=== PATIENT | male | born 1960 | race Caucasian/White ===

== ENCOUNTER 2024-10-22 13:04 | Emergency (ER) | payer MEDICARE ==
[2024-10-22] MEDS ORDERED: Magnesium 2 GM/50 ML BAG (IN WATER) ONE (13:33)
[2024-10-22 13:36] LABS: #Basophils 0.2 thou/uL (0.0-0.2); #Eosinophils 0.2 thou/uL (0.0-0.7); #Lymphocytes 2.6 thou/uL (1.20-3.40); #Monocytes 0.8 thou/uL (0.11-0.59); #Neutrophils 6.0 thou/uL (1.40-6.50); %Basophils 2.0 % (0.0-1.0); %Eosinophils 1.7 % (0.0-10.0); %Lymphocytes 26.4 % (21.0-51.0); %Monocytes 8.4 % (0.0-10.0); %Neutrophils 61.5 % (42.0-75.0); Hematocrit 57.1 % (42.0-52.0); Hemoglobin 18.4 g/dL (14.0-18.0); Mean Corpuscular Hemoglobin 30.1 pg (27.0-31.0); Mean Corpuscular Volume 93.6 fl (78.0-98.0); Platelet Count 277 10x3/uL (130-400); Red Blood Cell (RBC) Count 6.10 mill/uL (4.70-6.10); White Blood Cell (WBC) Count 9.7 10x3/uL (4.8-10.8)
[2024-10-22 13:46] LABS: INR-International Normal Ratio 1.0; Prothrombin Time 13.0 sec (12.0-14.7)
[2024-10-22 13:47] LABS: PTT 29.7 sec (22.9-36.1)
[2024-10-22 13:49] LABS: D-Dimer Test 0.32 mcg/mL (0.27-0.43)
[2024-10-22 13:54] LABS: ALT (SGPT) 18 U/L (Less than 45); AST (SGOT) 22 U/L (11-34); Albumin 4.7 g/dL (3.1-4.5); Alkaline Phosphatase 77 U/L (40-110); Anion Gap 16 mmol/L (10-20); BUN (Urea Nitrogen) 16 mg/dL (8.4-25.7); Bilirubin, Total 0.7 mg/dL (0.3-1.2); Calc. Creatinine Clearance 0 mL/min (70-130); Calcium 9.9 mg/dL (7.8-10.44); Carbon Dioxide 22 mmol/L (23-31); Chloride 109 mmol/L (98-107); Globulin 2.7 g/dL (2.4-3.5); Glucose 86 mg/dL (80-115); Magnesium 2.1 mg/dL (1.6-2.6); Potassium 4.3 mmol/L (3.5-5.1); Sodium 143 mmol/L (136-145)
[2024-10-22 13:55] LABS: Troponin I 0.023 ng/mL (< 0.028)
[2024-10-22] MEDS ORDERED: dilTIAZem 25 MG/5 ML VIAL ONE (14:42)
== END 2024-10-22 18:00 | disposition home or self-care (01) ==
LOC: MADERS 13:04
DX: I48.92 Unspecified atrial flutter (principal); R00.0 Tachycardia, unspecified; I48.0 Paroxysmal atrial fibrillation; F17.210 Nicotine dependence, cigarettes, uncomplicated
CPT/HCPCS: 71045; 80053; 83735; 83880; 84484; 85025; 85379; 85610; 85730; 93005; 96365; 96366; 96375; J3475; J7030

== ENCOUNTER 2024-11-18 09:42 | Emergency (ER) | payer MEDICARE | END 2024-11-18 11:13 | disposition home or self-care (01) | LOC: MADERS 09:42 | DX: I48.91 Unspecified atrial fibrillation (principal); Z76.0 Encounter for issue of repeat prescription; F17.210 Nicotine dependence, cigarettes, uncomplicated | CPT/HCPCS: 99281 ==